=== PATIENT | male | born 1940 | race Caucasian/White ===

== ENCOUNTER 2016-09-17 14:49 | Emergency (ER) | payer MEDICARE, BC ==
[2016-09-17 12:08] LABS: BASOPHILS 0.6 %; BASOPHILS ABSOLUTE 0.03 10/3/uL (0.0-0.16); EOSINOPHILS 4.4 %; EOSINOPHILS ABSOLUTE 0.24 10/3/uL (0.0-0.53); HEMATOCRIT 41.3 % (40.0-51.0); HEMOGLOBIN 13.4 g/dL (13.6-17.8); IMMATURE GRANULOCYTES 0.2 %; IMMATURE GRANULOCYTES ABSOLUTE 0.01 10/3/uL (0.0-0.11); LYMPHOCYTES 31.4 %; MEAN CORPUS HGB CONC 32.4 g/dL (32.0-36.0); MEAN CORPUSCULAR HEMOGLOB 28.2 pg (26.0-34.0); MEAN CORPUSCULAR VOLUME 86.9 fL (80-100); MONOCYTES 8.5 %; MONOCYTES ABSOLUTE 0.46 10/3/uL (0.21-1.20); NEUTROPHILS 54.9 %; NEUTROPHILS ABSOLUTE 2.98 10/3/uL (2.02-8.40); PLATELET COUNT 156 10/3/uL (150-400); RBC DISTRIBUTION WIDTH 14.3 % (12.0-16.0); RED CELL COUNT 4.75 10/6/uL (4.7-6.1); WHITE BLOOD CELLS 5.4 10/3/uL (4.5-10.5)
[2016-09-17 12:09] LABS: MANUAL DIFF NO %
[2016-09-17 12:15] LABS: PARTIAL THROMBO TIME 28.5 SEC (22.5-37.2); PROTIME (NOT ORD) 13.5 SEC (12.0-14.5)
[2016-09-17 12:33] LABS: CALCIUM, SERUM 9.3 MG/DL (8.5-10.4); CHLORIDE, SERUM 104 MMOL/L (96-112); CREATININE 1.22 MG/DL (0.70-1.30); GFR AFRICAN AMERICAN 66 ML/MIN (>=60); GFR NON AFRICAN AMERICAN 57 ML/MIN (>=60); GLUCOSE, SERUM 131 MG/DL (60-99); POTASSIUM, SERUM 4.4 MMOL/L (3.5-5.3); SODIUM, SERUM 141 MMOL/L (135-148); TROPONIN I <0.02 NG/ML (<0.05)
[2016-09-17 12:34] LABS: BUN (BLOOD UREA NITROGEN) 21 MG/DL (6-23); CHEST PAIN PROFILE TAT 0 Hrs 31 Mins; CO2 (CARBON DIOXIDE) 30 MMOL/L (24-34)
[~2016-09-17 14:49] MED LIST: ALBUTEROL5 INH; ASA5GR PO; ASAB PO; BUSPAR10 PO; BUSPAR5 PO; COREG25 PO; COREG3 PO; GLUCPH PO; HYDROCHLOROT25 MG PO; INHALER; INTEGRA PLUS C1 EACH PO; LIPITOR40; LISINOPRIL40 MG PO; MUCINEX D1 TA1 PO; NASONEX INH; NORV10 PO; NTG150 SL; PLAVIX PO; PRAVACHOL40 MG PO; PRILO PO; PRIN5 PO; PROTONIX PO; PROVHFA INH; SLEEP AID OR; SPIRIVA INH; T PO; TYLENOL PM PO; Z300 PO; ZOCOR40 PO
== END 2016-09-17 16:01 | disposition home or self-care (01) ==
LOC: ER 14:49
PROVIDERS: Emergency Medicine
DX: R06.00 Dyspnea, unspecified (principal); R07.9 Chest pain, unspecified; J44.9 Chronic obstructive pulmonary disease, unspecified; I25.2 Old myocardial infarction; I10 Essential (primary) hypertension; E11.9 Type 2 diabetes mellitus without complications; Z95.5 Presence of coronary angioplasty implant and graft; Z85.118 Personal history of other malignant neoplasm of bronchus and lung; Z88.0 Allergy status to penicillin; Z88.8 Allergy status to other drugs, medicaments and biological substances; Z79.82 Long term (current) use of aspirin; Z79.84 Long term (current) use of oral hypoglycemic drugs; Z79.899 Other long term (current) drug therapy
CPT/HCPCS: 71020; 80048; 83735; 84484; 85025; 85610; 85730; 93005; 99285